=== PATIENT | female | born 1950 | race African-American/Black ===

== ENCOUNTER 2020-05-28 08:54 | Emergency (ER) | payer OTHER ==
[~2020-05-28] VITALS: Ht 165.1 cm; Wt 68.0 kg
[2020-05-28] MEDS ORDERED: NORVASC 2.5 MG2.5 M1 PO (10:38)
[2020-05-28 11:08] VITALS: BP 155/65
== END 2020-05-28 11:09 | disposition home or self-care (01) ==
LOC: ER 08:54
DX: I10 Essential (primary) hypertension (principal); R20.2 Paresthesia of skin; Z79.899 Other long term (current) drug therapy